=== PATIENT | male | born 1980 | race Caucasian/White ===

== ENCOUNTER 2019-11-09 16:04 | Emergency (ER) | payer SELFPAY ==
--- NOTE | 2019-11-09 16:19 | ER Document Report ---
ED Medical Screen (RME) - General Chief Complaint: Psych Problem Stated Complaint: PSYCH EVAL/SUICIDAL IDEATION Time Seen by Provider: 11/09/19 16:13 Primary Care Provider: CASSIE DICKINSON [Primary Care Provider] - Follow up as needed - HPI Notes: 11/09/19 16:18 Patient is a 39-year-old male with history of diverticulosis with no previous diagnosis of mental health disorders who presents complaining of having suicidal ideations and homicidal ideations over the past couple weeks. He does not have any plan for either. Patient states that he has had some type of SI/HI most of his life, but has never sought help for that in the past. He has never been on any medicines for mental health. Patient states that he is here today to get some help. He is able to eat and drink without difficulty. He is urinating normally. No recent illness otherwise. No fever, headache, chest pain, shortness breath, abdominal pain. Denies active drug use, but has smoked marijuana in the past. I have treated and performed a rapid initial assessment of this patient. A comprehensive ED assessment and evaluation of the patient, analysis of test results and completion of medical decision making process will be conducted by additional ED providers. PHYSICAL EXAMINATION: GENERAL: Well-appearing, well-nourished and in no acute distress. A&Ox4. Answers questions appropriately. Chest: RRR Lungs: CTAB Neuro: Cranial nerves grossly intact Psych: Normal mood and affect. Speech is clear. Makes appropriate eye contact. Doctor's Discharge - Discharge Referrals: CASSIE DICKINSON [Primary Care Provider] - Follow up as needed
[2019-11-09 17:22] LABS: APPEARANCE,URINE CLEAR; BILIRUBIN,URINE NEGATIVE (NEGATIVE); COLOR,URINE YELLOW; GLUCOSE, URINE NEGATIVE (NEGATIVE); KETONES,URINE NEGATIVE (NEGATIVE); LEUKOCYTE ESTERASE,URINE NEGATIVE (NEGATIVE); NITRITE,URINE NEGATIVE (NEGATIVE); PROTEIN,URINE NEGATIVE (NEGATIVE); URINE SPECIFIC GRAVITY 1.013
[2019-11-09 17:23] LABS: ABSOLUTE BASOPHILS # (AUTO) 0.1 10^3/uL (0.0-0.2); ABSOLUTE EOSINOPHILS # (AUTO) 0.5 10^3/uL (0.0-0.6); ABSOLUTE LYMPHOCYTES (AUTO) 2.6 10^3/uL (0.5-4.7); ABSOLUTE MONOCYTES (AUTO) 0.5 10^3/uL (0.1-1.4); ABSOLUTE NEUT (AUTO) 5.5 10^3/uL (1.7-8.2); BASOPHILS % (AUTO) 0.7 % (0-2); EOSINOPHILS % (AUTO) 5.8 % (0-6); HEMOGLOBIN 14.9 g/dL (13.5-17.0); LYMPHOCYTES % (AUTO) 28.5 % (13-45); MEAN CORPUSCULAR HEMOGLOBIN 30.7 pg (27.0-33.4); MEAN CORPUSCULAR HGB CONC 35.4 g/dL (32.0-36.0); MEAN CORPUSCULAR VOLUME 87 fl (80-97); MONOCYTES % (AUTO) 5.8 % (3-13); PLATELET COUNT 319 10^3/uL (150-450); RED BLOOD COUNT 4.84 10^6/uL (4.35-5.55); RED CELL DISTRIBUTION WIDTH 13.7 % (11.5-14.0); SEGMENTED NEUTROPHILS % (AUTO) 59.2 % (42-78); TOTAL CELLS COUNTED % (AUTO) 100 %; WHITE BLOOD COUNT 9.3 10^3/uL (4.0-10.5)
[2019-11-09 17:40] LABS: URINE AMPHETAMINES SCREEN NEGATIVE; URINE BARBITURATES SCREEN NEGATIVE; URINE BENZODIAZEPINES SCREEN NEGATIVE; URINE COCAINE SCREEN NEGATIVE; URINE METHADONE SCREEN NEGATIVE; URINE PHENCYCLIDINE SCREEN NEGATIVE
[2019-11-09 17:42] LABS: URINE MARIJUANA (THC) SCREEN UNCONFIRMED POSITIVE
[2019-11-09 17:47] LABS: ALKALINE PHOSPHATASE 71 U/L (38-126); ANION GAP 12 (5-19); ASPARTATE AMINO TRANSFERASE 21 U/L (17-59); BILIRUBIN,DIRECT 0.3 mg/dL (0.0-0.4); BILIRUBIN,TOTAL 0.6 mg/dL (0.2-1.3); BLOOD UREA NITROGEN 13 mg/dL (7-20); CALCIUM 10.1 mg/dL (8.4-10.2); CARBON DIOXIDE 29 mmol/L (22-30); CHLORIDE 100 mmol/L (98-107); GLUCOSE 88 mg/dL (75-110); POTASSIUM 3.9 mmol/L (3.6-5.0); TOTAL PROTEIN 8.7 g/dL (6.3-8.2)
[2019-11-09 17:56] LABS: ACETAMINOPHEN < 10 ug/mL (10-30); ALCOHOL < 10 mg/dL (NONE DETECTED); SALICYLATE < 1.0 mg/dL (2.0-20.0)
--- NOTE | 2019-11-09 21:26 | EKG REPORT ---
SEVERITY:- NORMAL ECG - SINUS RHYTHM : Confirmed by: Whit Jarrett MD 09-Nov-2019 21:26:15
--- NOTE | 2019-11-09 21:56 | ER Document Report ---
ED General - General Chief Complaint: Suicidal Ideation Stated Complaint: PSYCH EVAL/SUICIDAL IDEATION Time Seen by Provider: 11/09/19 16:13 Primary Care Provider: CASSIE DICKINSON [NO LOCAL MD] - Follow up as needed Information source: Patient TRAVEL OUTSIDE OF THE [place] IN LAST 30 DAYS: No - HPI Onset: Other - over the last month or so Onset/Duration: Gradual Quality of pain: No pain Severity: Moderate Pain Level: Denies Associated symptoms: Other - Depression, Passive SI Exacerbated by: Denies Relieved by: Denies Similar symptoms previously: No Recently seen / treated by doctor: No Notes: 39 year old male with no significant PMH brought to the ER by his brother due to concern of depression and passive thoughts of SI. The patient says he has no specific plans of how he would try to harm himself but he assures me he could find a way if he wanted to. The patient says he has been going through a lot with his family and with employment issues. The patient was recently kicked out of his fathers house and he is currently living with his brother. The patient has been telling people he is feeling depressed and his brother who apparently works in the mental health field convinced the patient to come to the ER for evaluation. - Related Data Allergies/Adverse Reactions: No Known Allergies Allergy (Verified 11/09/19 16:31) Past Medical History - General Information source: Patient - Social History Smoking Status: Current Every Day Smoker Chew tobacco use (# tins/day): Yes Frequency of alcohol use: None Drug Abuse: Marijuana Lives with: Family Family History: Reviewed & Not Pertinent Patient has suicidal ideation: Yes Patient has homicidal ideation: Yes - Past Medical History Cardiac Medical History: Reports: None Pulmonary Medical History: Reports: None EENT Medical History: Reports: None Neurological Medical History: Reports: None Endocrine Medical History: Reports: None Renal/ Medical History: Reports: None Malignancy Medical History: Reports None GI Medical History: Reports: None Musculoskeletal Medical History: Reports None Psychiatric Medical History: Reports: Hx Depression, Other - Passive SI Traumatic Medical History: Reports: None Infectious Medical History: Reports: None Past Surgical History: Reports: None Review of Systems - Review of Systems Constitutional: No symptoms reported EENT: No symptoms reported Cardiovascular: No symptoms reported Respiratory: No symptoms reported Gastrointestinal: No symptoms reported Genitourinary: No symptoms reported Male Genitourinary: No symptoms reported Musculoskeletal: No symptoms reported Hematologic/Lymphatic: No symptoms reported Neurological/Psychological: Depression, Suicidal ideation Physical Exam - Vital signs Vitals: Temp Pulse Resp BP Pulse Ox 98.5 F 68 16 144/86 H 99 11/09/19 16:31 11/09/19 16:31 11/09/19 16:31 11/09/19 16:31 11/09/19 16:31 - Notes Notes: GENERAL: Well-appearing, well-nourished and in no acute distress. HEAD: Atraumatic, normocephalic. EYES: Pupils equal round and reactive to light, extraocular movements intact, sclera anicteric, conjunctiva are normal. ENT: TMs normal, nares patent, oropharynx clear without exudates. Moist mucous membranes. NECK: Normal range of motion, supple without lymphadenopathy or JVD. LUNGS: Breath sounds clear to auscultation bilaterally and equal. No wheezes rales or rhonchi. HEART: Regular rate and rhythm without murmurs, rubs or gallops. ABDOMEN: Soft, nontender, normoactive bowel sounds. No guarding, no rebound. No masses appreciated. EXTREMITIES: Normal range of motion, no pitting or edema. No clubbing or cyanosis. NEUROLOGICAL: Cranial nerves II through XII grossly intact. Normal speech, normal gait. PSYCH: Normal mood, normal affect. Patient is expressing some passive SI without a specific plan. Patient has felt depressed as of late due to family and [place] issues. SKIN: Warm, Dry, normal turgor, no rashes or lesions noted. Course - Re-evaluation Re-evalutation: 11/09/19 22:47 The patient is here for depression and passive SI. When speaking with his parents, it sounds like he has been having thoughts of SI for a month and he has even had thoughts of wanting to kill his children. The patient is denying most of this to me. Due to conflicting stories, will fill out IVC papers and have the patient formally evaluated by psych in the AM. The patient is medically cleared at this time. - Vital Signs Vital signs: Temp Pulse Resp BP Pulse Ox 98.5 F 68 16 144/86 H 99 11/09/19 16:31 11/09/19 16:31 11/09/19 16:31 11/09/19 16:31 11/09/19 16:31 - Laboratory Result Diagrams: 11/09/19 17:07 11/09/19 17:07 Laboratory results interpreted by me: 11/09/19 11/09/19 17:07 17:07 Total Protein 8.7 H Urine Urobilinogen 2.0 H Salicylates < 1.0 L Acetaminophen < 10 L Discharge - Discharge Clinical Impression: Depression Qualifiers: Depression Type: major depressive disorder Major depression recurrence: u nspecified whether recurrent Active/Remission status: currently active Major depression episode severity: unspecified Qualified Code(s): F32.9 - Major depressive disorder, single episode, unspecified Condition: Stable Disposition: PSYCH HOSP/UNIT Instructions: Depression ([facility]), Suicidal Ideation ([facility]) Referrals: LOCALMD,NO [NO LOCAL MD] - Follow up as needed
[2019-11-09] MEDS ORDERED: DIPHENHYDRAMINE HCL 25 MG CAPSULE PO ONE (22:46)
[2019-11-09] MEDS ORDERED: NICOTINE 21 MG/24 HR PATCH.TD24 TD ONE (22:46)
[2019-11-10] MEDS ORDERED: NICOTINE 21 MG/24 HR PATCH.TD24 ONE (04:40)
--- NOTE | 2019-11-10 12:55 | ER Document Report ---
Doctor's Note Notes: 11/10/19 12:55 Chart reviewed patient rounded on 11/10/19 14:02 Patient is calm. Reports he was depressed has started self-medicating with marijuana. Patient denies suicidal or homicidal ideations at this time. Reports he just has to figure out who is going to live with, reports he knew it was a bad idea to live with his brother. PHYSICAL EXAMINATION: GENERAL: Well-appearing and in no acute distress HEAD: Atraumatic, normocephalic. EYES: , extraocular movements intact, sclera anicteric, conjunctiva are normal. ENT: nares patent, Moist mucous membranes. NECK: Normal range of motion, supple without lymphadenopathy LUNGS: CTAB and equal. No wheezes rales or rhonchi. HEART: Regular rate and rhythm without murmurs ABDOMEN: Soft, no tenderness. No guarding, no rebound EXTREMITIES: Normal range of motion, NEUROLOGICAL: Cranial nerves grossly intact. Normal sensory/motor exams. PSYCH: Normal mood, normal affect. SKIN: Warm, Dry, normal turgor, 11/10/19 1800 Upon discharge patient noted that he had a history of MRSA. He reports 2 months ago he had a wound to his lower legs from fire ant bites. He was treated with antibiotics and also lump tested positive for MSRA. Employees from [facility] are concerned report they need blood cultures to prove that he does not have MRSA now. These same employees went into the patient's room and discussed situation with patient. Apparently they agreed that he would be seen at [facility] now and come up with a plan. Patient discharged.
[2019-11-10] MEDS ORDERED: NICOTINE 21 MG/24 HR PATCH.TD24 TD ONE (16:00)
--- NOTE | 2019-11-10 16:47 | PSYCHOLOGICAL NOTE ---
Psych Note - Psych Note Date seen by psych provider: 11/10/19 Time seen by psych provider: 08:55 Psych Note: Reason for consult: Suicidal/ homicidal ideation Patient reports that his brother: Antonio, transported the patient to [facility] because he was concerned for the patient's mental health. He reports that they have been fighting and "I said some things... I expressed my feelings.... I said some things that I did not mean." Patient reports that he has feels sad all the time and cries every morning just to start the day. He reports that sometimes he has to cry in the middle the day to keep going. He states that he smokes marijuana however about a week ago he stopped smoking and has noticed an increase in difficulty in controlling his emotions. He reports that the last time he quit using drugs he went through the same process. He reports that he tries to tell his family that he just needs some time to get through this difficult process however they do not understand. Patient reports he just wants someone to talk to. Patient is alert and orientated to person, place, time and circumstance. Mood is dysphoric with tearful affect. Patient endorses passive suicidal ideation i.e. no plans means or intent. Patient denies homicidal ideation. Delusions are absent behaviors congruent with an intact reality based presentation I organized and linear thought process. Eye contact is fair. Conversational speech is within normal rate, tone and prosody. Intellectual abilities appear to be within average range. Attention and concentration are good. Insight, judgment, impulse control is fair. Impression\\plan: Patient is recommended for rescind of IVC and is cleared from acute psychiatric services. Clinician notes patient provides very vague and at times conflicting information. Patient reports that he does not want to however does not care if he does. Patient denies having any plan on how he would harm himself; he does confirm a making suicidal comments to his family. There was originally some concern the patient made homicidal comments however patient specifically stated that he is afraid to take care of his children because he would be afraid of doing something wrong that may injure them such as getting into a car accident or not watching them "good enough." At no time did the patient stated he wanted to kill anyone and adamantly denies this. Patient does present very dysphoric and states he wants mental health assistance so he can get better. Patient came in voluntarily. Behavior health team was able to secure a voluntary bed at the [facility]. Patient is highly encouraged to follow through with his placement. Dr. Gamez was consulted to care management this patient; attending physicians in agreement with recommendations and disposition.
[2019-11-10 17:57] VITALS: BP 136/93
== END 2019-11-10 18:30 | disposition home or self-care (01) ==
LOC: ER 16:04
DX: F32.9 Major depressive disorder, single episode, unspecified (principal); R45.851 Suicidal ideations; R45.850 Homicidal ideations; F17.200 Nicotine dependence, unspecified, uncomplicated; F12.10 Cannabis abuse, uncomplicated; Z86.14 Personal history of Methicillin resistant Staphylococcus aureus infection
CPT/HCPCS: 36415; 80053; 80307; 81001; 85025; 93005; 93010; 99285